=== PATIENT | male | born 1955 | race Two or more races ===

== ENCOUNTER 2024-05-08 15:21 | Emergency (ER) | payer MEDICARE, OTHER ==
[~2024-05-08] VITALS: Ht 170.2 cm; Wt 74.8 kg
[2024-05-08] MEDS ORDERED: NAPR500T6 PO (18:07)
[2024-05-08 18:27] VITALS: BP 166/94; O2SAT 98
== END 2024-05-08 18:28 | disposition home or self-care (01) ==
LOC: ER 15:21
DX: S16.1XXA Strain of muscle, fascia and tendon at neck level, initial encounter (principal); S09.90XA Unspecified injury of head, initial encounter; M54.6 Pain in thoracic spine; E11.9 Type 2 diabetes mellitus without complications; N40.0 Benign prostatic hyperplasia without lower urinary tract symptoms; Y04.8XXA Assault by other bodily force, initial encounter; Y93.89 Activity, other specified; Y92.89 Other specified places as the place of occurrence of the external cause; Y99.8 Other external cause status
CPT/HCPCS: 72072; A4606; A4663